=== PATIENT | female | born 1980 | race Caucasian/White ===

== ENCOUNTER 2021-09-17 19:54 | Emergency (ER) | payer OTHER ==
[~2021-09-17 19:54] MED LIST: AUGMENTIN 875 M1 TAB PO; CIPRODEX 0.3%-7.5 ML OT; DARVOCET N 1001 TAB PO
[2021-09-17] MEDS ORDERED: SEPTDS PO (20:23)
== END 2021-09-17 20:39 | disposition home or self-care (01) ==
LOC: ED 19:54
DX: L03.114 Cellulitis of left upper limb (principal); Z88.0 Allergy status to penicillin; Z91.040 Latex allergy status

== ENCOUNTER → 2024-10-15 | Outpatient (CLI) | payer OTHER ==
[~2024-10-15] MED LIST changes: +CLARITIN10 MG PO; +DECONGEST NAS; +LEVOFLOXACIN750 M2 PO; +MUCINEX DM 30/61 TAB PO; +SEPTDS PO; +VENT7GM INH
== END | disposition home or self-care (01) ==
LOC: RAD 11:02
PROVIDERS: ATTEND Family Medicine
DX: R06.02 Shortness of breath (principal); R06.00 Dyspnea, unspecified